=== PATIENT | male | born 1995 | race Caucasian/White ===

== ENCOUNTER → 2017-06-23 | Day surgery (SDC) | payer OTHER ==
[~2017-06-23] MED LIST: NORCO ELIXIR PO; TETRACAINE; TETRACAINE 0.5%
== END | disposition home or self-care (01) ==
LOC: OR 08:17
PROVIDERS: Otolaryngology
PROC: 0CBQ0ZZ Excision of Adenoids, Open Approach (ICD-10-PCS; 2017-06-23)
PROC: 0CBPXZZ Excision of Tonsils, External Approach (ICD-10-PCS; principal; 2017-06-23 10:00)
DX: J35.03 Chronic tonsillitis and adenoiditis (principal); K21.9 Gastro-esophageal reflux disease without esophagitis; Z82.49 Family history of ischemic heart disease and other diseases of the circulatory system
CPT/HCPCS: J1100; J1885; J2250; J2405; J2710; J3010; J7120